=== PATIENT | female | born 1985 | race Caucasian/White ===

== ENCOUNTER 2020-02-29 16:09 | Emergency (ER) | payer BC, SELFPAY ==
[2020-02-29 17:11] VITALS: BP 128/82; PULSE 80; RESP 19; TEMP 36.8; O2SAT 99; BMI 38.4
--- NOTE | 2020-02-29 17:13 | HMH.EDUTC ---
[facility] [place] Disposition Clinical Impression: UTI (urinary tract infection) Qualifiers: Urinary tract infection type: site unspecified Hematuria presence: without hematuria Qualified Code(s): N39.0 - Urinary tract infection, site not specified Disposition: Home, Self-Care Condition on Discharge: Good Instructions: DI for Urinary Tract Infection (UTI), Nitrofurantoin, Phenazopyridine Additional Instructions: *Increase fluids. Water not Soda or Tea *Start antibiotic immediately and be sure to take as ordered for the FULL length of time although you should start to see improvement over the next 48 hours *Pyridium as needed Remember this medication will turn your urine [facility]. This is normal but it will stain what ever it gets on *You should not use Pyridium for more than 48 hours. If so , follow up with your primary physician to review urine culture and ensure that antibiotic is adequate for infection *Be SURE to follow up anytime for new or worsening symptoms with your family doctor. AND in 48 hours for urine culture results with your family doctor, if you do not have a doctor then you may call back to the [facility] for urine culture results and further treatment. We do recommend that you choose and establish care with a Primary Care Physician. AND follow up with them in 10-14 days to repeat UA to ensure infection is resolved and blood no longer present *Be sure to let your PCP know that we sent urine cultures from the [facility] so they can follow up to ensure that you area the on the correct antibiotic Call your doctor office and make appointment for 48 hours (2 days from today) to follow up and get the results of your urine culture and further treatment Return if needed Follow up as recommended and especially for your Urine Culture results Prescriptions: Nitrofurantoin Monohyd/M-Cryst [Macrobid 100 mg Capsule] 100 mg PO BID 10 Days #20 cap Transmission Status: Pending to [id number] Phenazopyridine HCl [Pyridium 200mg Tablet] 200 pow PO TID #6 tab Transmission Status: Pending to [facility] Referrals: PCP,No [Primary Care Provider] - As needed Time of Disposition: 17:19 Medical Decision Making - Jose R Inquiry Pt receiving controlled substance: No Jose R was queried for this patient: No Vital Signs: 02/29/20 17:11 Temperature 98.3 F Temperature Source Oral Pulse Rate [Left] 80 Respiratory Rate 19 Blood Pressure [Right Arm] 128/82 Blood Pressure Mean [Right Arm] 97 Blood Pressure Source [Right Arm] Automatic Cuff Blood Pressure Position [Right Arm] Sitting 02 Sat by Pulse Oximetry 99 Oxygen Delivery Method Room Air - Lab Data Lab results reviewed: Yes: I reviewed the patient's lab results. Orders (Tests/Meds): ORDERS Category Date Time Status Urine Culture Stat Micro 02/29/20 17:01 Ordered [facility] [place] HPI - General Stated complaint: [place] UTI Time Seen by Provider: 02/29/20 17:13 Mode of Arrival: Ambulatory Source of Information: Patient Limitations: No Limitations Description of Symptoms (Recalled from Triage Doc. by RN): Possible UTI HEENT Symptoms (Recalled from RN notes): No Resp Symptoms (Recalled from RN notes): No Skin Symptoms (Recalled from RN notes): No MS Symptoms (Recalled from RN notes): No Functional Status (Recalled from RN notes): wnl - History of Present Illness Provider Complaint: Patient state that she feels like she has a UTI State that she has been having the feeling of urgency and frequency and burining with urination States that she has not had any fever, chills, body aches or pain in her abdomen - Related Data Home Medications Medication Instructions Recorded Confirmed Magnesium Oxide [Magnesium] 250 mg PO DAILY 02/17/18 02/17/18 Previous Rx's Medication Instructions Recorded Nitrofurantoin Monohyd/M-Cryst 100 mg PO BID 10 Days #20 cap 02/29/20 [Macrobid 100 mg Capsule] Phenazopyridine HCl [Pyridium 200 pow PO TID #6 tab 02/29/20 200mg Tablet
[2020-02-29 17:39] VITALS: BP 128/82; PULSE 80; RESP 19; TEMP 36.8; O2SAT 99
[2020-02-29 19:26] LABS: Apearance,Urine Clear (Clear); Color,Urine Yellow (Yellow)
[2020-02-29 19:27] LABS: Bilirubin,Urine Negative (Negative); Blood, Urine Negative (Negative); Glucose,Urine (UA) Negative (Negative); Ketones,Urine Negative (Negative); PH,Urine 5.5 (5.0-8.5); Protein,Urine Negative (Negative); UTC Leukocyte Esterase,Urine 1+ (Negative); UTC Nitrate,Urine Negative (Negative); Urobilinogen,Urine 0.2 EU/dl (0.2)
== END 2020-02-29 17:40 | disposition home or self-care (01) ==
PROVIDERS: Emergency Provider Nurse Practitioner
DX: N39.0 Urinary tract infection, site not specified (principal); Z88.5 Allergy status to narcotic agent; Z87.891 Personal history of nicotine dependence
CPT/HCPCS: 81003; 87086; 87088; 87186; 99201

== ENCOUNTER 2020-06-22 19:34 | Emergency (ER) | payer BC, OTHER, SELFPAY ==
--- NOTE | 2020-06-22 19:32 | ECG_ITS ---
APPROVED REPORT Exam: Resting ECG HR:78 bpm ECG Measurements Heart Rate 78 AXES IA 158 P 53 QRSd 78 QRS 67 QT 386 T 52 QTc 440 Conclusion Normal sinus rhythm Normal ECG Electronically signed by : Wilfred Robledo, 06/23/2020 14:57:19
[2020-06-22 19:36] VITALS: BP 135/86; PULSE 84; RESP 14; TEMP 36.7; O2SAT 99; BMI 38.4
--- NOTE | 2020-06-22 19:49 | XR_ITS ---
PROCEDURE: XR CHEST 2V CLINICAL HISTORY: Chest Pain COMPARISON: CR CXR CHEST(2 VIEWS-NOT PORTABLE) from 02/01/2016 CR CXR CHEST(2 VIEWS-NOT PORTABLE) from 07/13/2016 CR CXR1VP XR chest portable from 02/17/[address] ANGIO CHEST from 06/22/2020 FINDINGS: The heart size is normal. Central pulmonary vasculature is within normal limits. There is an apparent ill-defined density noted in the right lower zone, demonstrates no corresponding focal lesions on the CT scan of the thorax performed on the same date, likely artifactual. The lungs are clear without infiltrates, suspicious nodules, or pleural effusions. No acute bony abnormalities. IMPRESSION: No focal consolidation or pleural effusions. Dictated by: Katerine Coley 06/23/2020 09:32 Katerine Coley in [place] 06/23/2020 09:32
--- NOTE | 2020-06-22 19:52 | CT_ITS ---
PROCEDURE: CT ANGIO CHEST CLINCIAL INDICATION: chest pain with HX PE COMPARISON: No exams were available for comparison TECHNIQUE: IV Contrast: 70ML Isovue 370 Axial images obtained with sagittal and coronal reformats. All CT scans at the facility use one or more dose reduction, viz: automated exposure control, ma/kV adjustment per patient size (including targeted exams where dose is matched to indication, i.e. head), or iterative reconstruction technique. FINDINGS: HEART AND MEDIASTINAL STRUCTURES: There is minor focal filling defects in the left main pulmonary artery extending into the segmental branches, predominantly adherent to the dietz, likely sequela of prior versus chronic pulmonary embolism. No evidence of occlusive filling defects noted. The heart size is normal. No pericardial effusions. LUNGS AND PLEURAL SPACES: No focal consolidation, pleural effusions or pneumothorax. Subpleural nodule noted in the right middle lobe measuring 3 millimeters. Minor bilateral lower lobe atelectasis. The central tracheobronchial tree is patent. No other suspicious lung nodules. BONY STRUCTURES: Minor degenerative changes of the visualized thoracic spine. UPPER ABDOMEN: Focal hypodense lesion is noted in the right lobe of the liver with peripheral vascularity. Cholecystectomy is noted. Rest of the visualized upper abdominal solid organs are unremarkable within the limitations of phase of IV contrast. ADDITIONAL FINDINGS: The visualized thyroid gland is unremarkable. IMPRESSION: Minor focal filling defects, predominantly adherent to the wall in the left main pulmonary artery extending into segmental branches, likely sequela of prior versus chronic pulmonary embolism. No evidence of occlusive pulmonary embolism is noted. Focal hypodense lesion in the right lobe of the liver with peripheral enhancement, incompletely evaluated on the current study. Nonemergent ultrasound of the liver is recommended for further evaluation. Dictated by: Katerine Coley 06/23/2020 09:16 Katerine Coley in [place] 06/23/2020 09:16
[2020-06-22 20:01] VITALS: BP 122/83; PULSE 62; RESP 17; O2SAT 97
[2020-06-22 20:05] LABS: Basophils # 0.1 K/mm3 (0-0.2); Basophils % 1.3 % (0.1-2.0); Eosinophils # 0.1 K/mm3 (0.0-0.4); Eosinophils % 1.3 % (0.1-12.0); Hemoglobin 15.2 g/dL (12.2-16.2); Lymphocytes # 3.5 K/mm3 (0.7-4.5); Lymphocytes % 34.7 % (10-50); Mean Corpuscular HGB Conc 32.9 g/dL (31.8-35.4); Mean Corpuscular Hemoglobin 29.7 pg (27.0-31.2); Mean Platelet Volume 7.7 fl (7.4-10.4); Monocytes # 0.4 K/mm3 (0.1-1.0); Monocytes % 4.1 % (1.7-9.3); Neutrophils # 5.8 K/mm3 (1.8-7.8); Neutrophils % 58.5 % (37.0-80.0); Platelet Count 310 K/mm3 (142-424); Red Blood Count 5.12 M/mm3 (4.20-5.40); Red Cell Distribution Width 13.2 % (11.5-17.5); White Blood Count 9.9 K/mm3 (4.8-10.8)
[2020-06-22 20:06] LABS: Alanine Aminotransferase 14 U/L (12-78); Albumin Level 4.5 g/dl (3.5-5.0); Alkaline Phosphatase 87 U/L (38-126); Amylase 61 U/L (30-110); Anion Gap 10.9 mEq/L (5-15); Aspartate Amino Transferase 20 U/L (14-36); Bilirubin,Indirect 0.4 mg/dL (0.0-0.9); Bilirubin,Total 0.4 mg/dl (0.2-1.3); Bilirubin,Unconjugated 0.4 mg/dL (0.0-1.1); Blood Urea Nitrogen 10 mg/dl (7-17); Calcium 9.5 mg/dl (8.4-10.2); Carbon Dioxide 22 mmol/L (22.0-30.0); Chloride 108 mmol/L (98-107); Creatinine Clearance Estimated 195 mL/min (50-200); Estimated Glomerular Filt Rate 113 ml/min (>60); GFR (African American) 137 ML/MIN (>60); Glucose 91 mg/dl (74-100); Lipase 230 U/L (23-300); Potassium 3.9 mmoL/L (3.5-5.1); Sodium 137 mmol/L (136-145)
[2020-06-22 20:12] LABS: C-Reactive Protein 2.7 mg/L (0-4)
[2020-06-22 20:23] LABS: Troponin I < 0.01 ng/ml (0.00-0.034)
[2020-06-22 20:26] LABS: Procalcitonin 0.041 ng/mL (0.0-2.0)
--- NOTE | 2020-06-22 20:35 | HMH.EDCP ---
ED Disposition Clinical Impression: Chest pain Qualifiers: Chest pain type: precordial pain Qualified Code(s): R07.2 - Precordial pain Disposition: Left Against Medical Advice Condition on Discharge: Good Instructions: DI for Chest Pain Additional Instructions: see pcp or card in am and return if sx restart Referrals: PCP,No [Non-Staff] - - Critical Care Critical Care Time: No Attestation: On 06/22/20, the high probability of a clinically significant, sudden or life threatening deterioration of the following system(s) required my full and direct attention, intervention and personal management. The time I documented below is in addition to time spent performing reported procedures but includes the following listed in this critical care notation. Medical Decision Making - Medical Records Medical records reviewed: Yes: I reviewed the patient's medical records. - Jose R Inquiry Pt receiving controlled substance: No Vital Signs: 06/22/20 19:36 06/22/20 20:01 06/22/20 21:00 Temperature 98.1 F Temperature Source Oral Pulse Rate 62 64 Pulse Rate [Right] 84 Respiratory Rate 14 17 13 Blood Pressure 122/83 125/80 Blood Pressure [Right Arm] 135/86 Blood Pressure Mean 96 Blood Pressure Mean [Right Arm] 102 Blood Pressure Source [Right Arm] Automatic Cuff Blood Pressure Position [Right Arm] Supine 02 Sat by Pulse Oximetry 99 97 96 Oxygen Delivery Method Room Air Room Air - Lab Data Lab results reviewed: Yes: I reviewed the patient's lab results. Lab Results 06/22/20 19:35: WBC 9.9, RBC 5.12, Hgb 15.2, Hct 46.0, MCV 90.0, MCH 29.7, MCHC 32.9, RDW 13.2, Plt Count 310, MPV 7.7, Neut % (Auto) 58.5, Lymph % (Auto) 34.7, Josephine % (Auto) 4.1, Eos % (Auto) 1.3, Baso % (Auto) 1.3, Neut # (Auto) 5.8, Lymph # (Auto) 3.5, Josephine # (Auto) 0.4, Eos # (Auto) 0.1, Baso # (Auto) 0.1, ESR 7 06/22/20 19:35: Sodium 137, Potassium 3.9, Chloride 108 H, Carbon Dioxide 22, Anion Gap 10.9, BUN 10, Creatinine 0.60, Estimated Creat Clear 195, Estimated GFR 113, Est GFR ( Amer) 137, Glucose 91, Calcium 9.5, Total Bilirubin 0.4, Direct Bilirubin 0.0, Conjugated Bilirubin 0.0, Indirect Bilirubin 0.4, Unconjugated Bilirubin 0.4, AST 20, ALT 14, Alkaline Phosphatase 87, Troponin I < 0.01, C-Reactive Protein 2.7, Total Protein 7.0, Albumin 4.5, Amylase 61, Lipase 230, Procalcitonin 0.041 Result diagrams: 06/22/20 19:35 06/22/20 19:35 Orders (Tests/Meds): ED MEDICATIONS Generic Name Dose Route Start Last Admin Trade Name Freq PRN Reason Stop Dose Admin Sodium Chloride 1,000 mls @ 999 mls/hr 06/22/20 20:00 06/22/20 20:05 Sod Chlor 0.9% 1000ml Bag IV 06/22/20 21:00 999 mls/hr .Q1H1M INDIRA Administration Sodium Chloride 8 ml 06/22/20 19:48 Sodium Chloride 0.9% 10ml Vial IV 07/22/20 19:47 NEEDED PRN dilute pepcid Discontinued Medications Generic Name Dose Route Start Last Admin Trade Name Freq PRN Reason Stop Dose Admin Famotidine 20 mg 06/22/20 19:48 06/22/20 20:04 Famotidine 20mg/2ml Vial IV 06/22/20 19:49 20 mg ONCE ONE Administration Iopamidol 70 ml 06/22/20 20:38 06/22/20 20:39 Iopamidol-370 (76%);100ml Bottle IV 06/22/20 20:39 70 ml ONCE ONE Administration Ketorolac Tromethamine 30 mg 06/22/20 19:48 06/22/20 20:04 Ketorolac 30mg/Ml Vial IV 06/22/20 19:49 30 mg ONCE ONE Administration Metoclopramide HCl 10 mg 06/22/20 19:48 06/22/20 20:04 Metoclopramide Hcl 10mg/2ml Vial IVP 06/22/20 19:49 10 mg ONCE ONE Administration Nitroglycerin 0.4 mg 06/22/20 19:48 06/22/20 20:04 Nitroglycerin 0.4mg Sl Tablet SL 06/22/20 19:49 0.4 mg ONCE ONE Administration Nitroglycerin 1 gm 06/22/20 21:00 06/22/20 21:01 Nitroglycerin 1 Gm Ointment TD 06/22/20 21:01 1 gm ONCE ONE Administration Ondansetron HCl 4 mg 06/22/20 19:48 06/22/20 20:04 Ondansetron 4mg/2ml Vial IV 06/22/20 19:49 4 mg ONCE ONE Administration S
[2020-06-22 20:46] LABS: Erythrocyte Sedimentation Rate 7 mm/hr (0-20)
[2020-06-22 21:00] VITALS: BP 125/80; PULSE 64; RESP 13; O2SAT 96
--- NOTE | 2020-06-22 21:37 | PC.NURSE ---
Pt wants to sign out AMA states she does not want to stay, the dangers of leaving have been explained by Dr Nelson and the nursing staff. Pt still wants to sign out AMA. Paper signed and IV removed, pt ambulated out.
[2020-06-22 21:42] VITALS: BP 111/76; PULSE 64; RESP 16; TEMP 36.7; O2SAT 99
== END 2020-06-22 21:48 | disposition left against medical advice (07) ==
PROVIDERS: Emergency Provider Emergency Medicine; PCP Nurse Practitioner Family
DX: R07.2 Precordial pain (principal); F41.9 Anxiety disorder, unspecified; I48.91 Unspecified atrial fibrillation; J44.9 Chronic obstructive pulmonary disease, unspecified; I10 Essential (primary) hypertension; I25.2 Old myocardial infarction; Z95.0 Presence of cardiac pacemaker; Z79.899 Other long term (current) drug therapy; F17.210 Nicotine dependence, cigarettes, uncomplicated
CPT/HCPCS: 71046; 71275; 80048; 80076; 82150; 83690; 84145; 84484; 85025; 85651; 86140; 93005; 96365; 96375; 99282; J2405; Q9967

== ENCOUNTER → 2020-07-01 14:14 | Outpatient (CLI) | payer BC, OTHER, SELFPAY | PROVIDERS: PCP Nurse Practitioner Family; Visit Provider Internal Medicine Cardiovascular Disease | DX: R07.9 Chest pain, unspecified (principal) | CPT/HCPCS: 93306 ==

== ENCOUNTER → 2020-07-07 09:46 | Outpatient (CLI) | payer BC, OTHER, SELFPAY ==
--- NOTE | 2020-07-07 09:48 | MM_ITS ---
PROCEDURE: MM DIG SCREENING MAMM BI W/CAD Digital Breast Tomosynthesis Included CLINICAL INDICATION: SCREENING No personal or family history of breast cancer. COMPARISON: This is a baseline exam, patient feels a thickness upper central portion right breast TECHNIQUE: Standard CC and MLO images and 3D Tomosynthesis was obtained. R2 CAD reviewed. FINDINGS: Moderate diffuse fibroglandular densities are seen in both breast primarily upper outer quadrants. Findings are fairly symmetrical bilaterally. There are no CAD markings. A skin marker was placed upper central portion right breast in a see no underlying abnormality. There are normal appearing glandular elements at this site similar to the comparable area left breast. There is no suspicious lesion in either breast and no suspicious microcalcifications. There are couple of benign-appearing calcifications in each breast. IMPRESSION: Mild to moderate breast density with no suspicious lesions seen BI-RAD Category: 2 Benign Finding(s) FOLLOW-UP: 1YR 1 Year Follow-up (A letter has been sent to the patient regarding results of the study.) Dictated by: Dr. Ibrahima Araiza MD 07/08/2020 13:10 Dr. Ibrahima Araiza MD in [place] 07/08/2020 13:10
== END ==
PROVIDERS: PCP Nurse Practitioner Family; Visit Provider Nurse Practitioner Family
DX: Z12.31 Encounter for screening mammogram for malignant neoplasm of breast (principal)
CPT/HCPCS: 77063; 77067

== ENCOUNTER → 2020-07-29 10:40 | Outpatient (CLI) | payer BC, OTHER, SELFPAY ==
[2020-07-29 11:30] LABS: INR 0.85 (0.9-1.1); Prothrombin Time 10.2 seconds (10.1-12.5)
[2020-07-29 11:34] LABS: D-Dimer 0.57 ug/mL (0.0-0.5)
[2020-07-29 12:04] LABS: Free T4 (Free Thyroxine) 1.08 ng/dl (0.78-2.19)
[2020-07-29 12:19] LABS: Thyroid Stimulating Hormone 1.01 uIU/mL (0.465-4.68)
[2020-07-30 11:34] LABS: Triiodothyronine (T3) Free 2.9 pg/mL (2.0-4.4)
[2020-07-31 15:42] LABS: Protein S, Free 56 % (57-157)
[2020-08-03 10:34] LABS: Protein C Antigen 128 % (60-150)
[2020-08-09 20:55] LABS: APTT 25.8 sec (.); Anti-Cardiolipin Antibody IgG <10 GPL (.); Anti-Cardiolipin Antibody IgM 11 MPL (.); Beta-2 Glycoprotein I Ab, IgA <10 SAU (.); Beta-2 Glycoprotein I Ab, IgG <10 SGU (.); Beta-2 Glycoprotein I Ab, IgM <10 SMU (.); Hexagonal Phase Phospholipid 2 sec (.); INR 0.9 ratio (.); Prothrombin Time 9.9 sec (.); Thrombin Time 19.1 sec (.)
== END ==
PROVIDERS: Internal Medicine Cardiovascular Disease; Visit Provider Internal Medicine Pulmonary Disease
DX: R06.00 Dyspnea, unspecified (principal); R07.9 Chest pain, unspecified; R42 Dizziness and giddiness; E05.90 Thyrotoxicosis, unspecified without thyrotoxic crisis or storm; F17.200 Nicotine dependence, unspecified, uncomplicated; Z86.711 Personal history of pulmonary embolism
CPT/HCPCS: 36415; 81241; 84439; 84443; 84481; 85302; 85306; 85378; 85597; 85598; 85610; 85613; 85670; 85730; 86146; 86147

== ENCOUNTER → 2020-08-15 13:34 | Outpatient (CLI) | payer BC, OTHER, SELFPAY ==
[2020-08-15 13:54] LABS: Basophils # 0.2 K/mm3 (0-0.2); Basophils % 1.2 % (0.1-2.0); Eosinophils # 0.2 K/mm3 (0.0-0.4); Eosinophils % 1.8 % (0.1-12.0); Hemoglobin 15.9 g/dL (12.2-16.2); Lymphocytes # 2.8 K/mm3 (0.7-4.5); Lymphocytes % 21.5 % (10-50); Mean Corpuscular HGB Conc 33.8 g/dL (31.8-35.4); Mean Corpuscular Hemoglobin 29.9 pg (27.0-31.2); Mean Corpuscular Volume 88.4 fl (81-99); Mean Platelet Volume 7.7 fl (7.4-10.4); Monocytes # 0.4 K/mm3 (0.1-1.0); Monocytes % 3.2 % (1.7-9.3); Neutrophils # 9.3 K/mm3 (1.8-7.8); Neutrophils % 72.2 % (37.0-80.0); Platelet Count 376 K/mm3 (142-424); Red Blood Count 5.31 M/mm3 (4.20-5.40); Red Cell Distribution Width 13.2 % (11.5-17.5); White Blood Count 12.9 K/mm3 (4.8-10.8)
[2020-08-15 15:24] LABS: Anion Gap 12.7 mEq/L (5-15); Blood Urea Nitrogen 13 mg/dl (7-17); Calcium 9.6 mg/dl (8.4-10.2); Carbon Dioxide 22 mmol/L (22.0-30.0); Chloride 107 mmol/L (98-107); Estimated Glomerular Filt Rate 95 ml/min (>60); GFR (African American) 115 ML/MIN (>60); Glucose 135 mg/dl (74-100); Potassium 4.7 mmoL/L (3.5-5.1); Sodium 137 mmol/L (136-145)
[2020-08-16 09:00] LABS: HCG Qualitative, Serum Negative (Negative)
== END ==
PROVIDERS: Visit Provider Internal Medicine Cardiovascular Disease
DX: R06.00 Dyspnea, unspecified (principal); Z01.812 Encounter for preprocedural laboratory examination; Z11.52 Encounter for screening for COVID-19; R42 Dizziness and giddiness; I27.20 Pulmonary hypertension, unspecified; R94.30 Abnormal result of cardiovascular function study, unspecified; F17.200 Nicotine dependence, unspecified, uncomplicated; Z86.711 Personal history of pulmonary embolism
CPT/HCPCS: 36415; 80048; 84703; 85025; U0003

== ENCOUNTER 2020-08-17 07:51 | Day surgery (SDC) | payer BC, OTHER, SELFPAY ==
[2020-08-17] VITALS (7 sets, daily range): BP systolic 106–128; BP diastolic 70–87; PULSE 68–90; RESP 18–20; O2SAT 90–96; BMI 40.2
--- NOTE | 2020-08-17 07:09 | IR_ITS ---
APPROVED REPORT Patient Location: Outpatient PROCEDURES Right internal jugular vein access Right heart catheterization INDICATION Pulmonary hypertension Informed consent was obtained prior to the procedure. COMPLICATIONS None Estimated Blood Loss: Less than 10 mls TECHNIQUE One percent lidocaine was used to anesthetize the right anterior aspect of the neck. A emergency communications dispatcher needle was used to identify the right internal jugular vein. Following this a larger cannulation needle was used to cannulate the right internal jugular vein and a wire was passed into the vein. Prior to the 7 [place] sheath being inserted the wire was confirmed under fluoroscopic guidance to be in the inferior vena cava. A 7 [place] sheath was introduced and a [place]-Bev catheter was floated using hemodynamic waveforms in the pulmonary artery, right ventricle , and right atrium. Saturations were obtained in the pulmonary artery and the right atrium. At the end of the procedure the patient was transferred to the postop holding area in stable condition for sheath removal. ANGIOGRAPHIC RESULTS Right atrial pressure 5 mmHg Right ventricular pressure 32/5 mmHg Pulmonary artery pressure 30/10 mmHg Pulmonary artery occlusion pressure 8 mmHg Right atrial saturation 78% Pulmonary artery saturation 80% IMPRESSION Normal to borderline mild pulmonary hypertension PLAN 1. Per primary cardiology team Electronically signed by : Rony Clinton, 08/17/2020 09:01:18
[2020-08-17 09:55] LABS: CATHL Arterial O2 SAT 80 % (90-100); CATHL Venous O2 SAT 78 % (75-80)
== END 2020-08-17 09:56 | disposition home or self-care (01) ==
LOC: CATHLAB 07:54
PROVIDERS: PCP Nurse Practitioner Family; Visit Provider Internal Medicine
DX: I27.20 Pulmonary hypertension, unspecified (principal); F17.210 Nicotine dependence, cigarettes, uncomplicated; R06.00 Dyspnea, unspecified; R42 Dizziness and giddiness; R94.30 Abnormal result of cardiovascular function study, unspecified; Z86.711 Personal history of pulmonary embolism
CPT/HCPCS: 82810; 93451; 99152; C1894; J1644

== ENCOUNTER 2020-09-20 19:05 | Emergency (ER) | payer OTHER, SELFPAY ==
[2020-09-20 19:25] VITALS: BP 161/87; PULSE 79; RESP 16; TEMP 37.1; O2SAT 97; BMI 36.6
--- NOTE | 2020-09-20 19:47 | CT_ITS ---
PROCEDURE INFORMATION: Exam: CT Head Without Contrast Exam date and time: 09/20/2020 7:47 PM Age: 35 years old Clinical indication: Injury or trauma; Work related; Blunt trauma (contusions or hematomas); Without loss of consciousness; Injury date: 09/20/2020; Injury details: Case of prabhakar fell off shelf and hit her in RT forehead neck pain and headache; Additional info: Head injury TECHNIQUE: Imaging protocol: Computed tomography of the head without contrast. Radiation optimization: All CT scans at this facility use at least one of these dose optimization techniques: automated exposure control; mA and/or kV adjustment per patient size (includes targeted exams where dose is matched to clinical indication); or iterative reconstruction. COMPARISON: No relevant prior studies available. FINDINGS: Brain: Normal. No hemorrhage. Unremarkable white matter. No mass effect. Cerebral ventricles: No ventriculomegaly. Paranasal sinuses: Visualized sinuses are unremarkable. No fluid levels. Mastoid air cells: Visualized mastoid air cells are well aerated. Bones/joints: Mild edema overlying the right frontal bone. Soft tissues: Unremarkable. IMPRESSION: 1. No acute intracranial findings. 2. Mild edema overlying the right frontal bone.
--- NOTE | 2020-09-20 19:47 | CT_ITS ---
PROCEDURE INFORMATION: Exam: CT Cervical Spine Without Contrast Exam date and time: 09/20/2020 7:47 PM Age: 35 years old Clinical indication: Injury or trauma; Other: Cashuber fell and hit her in RT forehead; Work related; Blunt trauma; Injury date: 09/20/2020; Patient HX: Case of janette woody fell off shelf and hit her in RT forehead. Neck pain and headache; Additional info: Head injury TECHNIQUE: Imaging protocol: Computed tomography images of the cervical spine without contrast. Radiation optimization: All CT scans at this facility use at least one of these dose optimization techniques: automated exposure control; mA and/or kV adjustment per patient size (includes targeted exams where dose is matched to clinical indication); or iterative reconstruction. COMPARISON: CR CS5 CERVICAL SPINE 4 OR 5 VIEWS 07/13/2016 6:22 PM FINDINGS: Bones/joints: Straightening of the curvature of the cervical spine is likely positional. Discs/Spinal canal/Neural foramina: No significant disc protrusion. No severe spinal canal stenosis. No significant neural foraminal narrowing. Lungs: Lung apices are normal. Soft tissues: Unremarkable. IMPRESSION: No acute fracture or malalignment of the cervical spine.
--- NOTE | 2020-09-20 20:07 | PC.NURSE ---
patient to CT
[2020-09-20 20:15] VITALS: BP 133/80; PULSE 70; RESP 15; O2SAT 100
[2020-09-20 20:33] LABS: Basophils # 0.1 K/mm3 (0-0.2); Basophils % 1.3 % (0.1-2.0); Eosinophils # 0.2 K/mm3 (0.0-0.4); Eosinophils % 2.4 % (0.1-12.0); Hematocrit 41.3 % (37.0-47.0); Lymphocytes # 3.3 K/mm3 (0.7-4.5); Mean Corpuscular HGB Conc 33.8 g/dL (31.8-35.4); Mean Corpuscular Hemoglobin 29.3 pg (27.0-31.2); Mean Corpuscular Volume 86.7 fl (81-99); Mean Platelet Volume 7.6 fl (7.4-10.4); Monocytes # 0.4 K/mm3 (0.1-1.0); Monocytes % 4.7 % (1.7-9.3); Neutrophils # 4.3 K/mm3 (1.8-7.8); Neutrophils % 51.6 % (37.0-80.0); Platelet Count 278 K/mm3 (142-424); Red Blood Count 4.77 M/mm3 (4.20-5.40); Red Cell Distribution Width 13.3 % (11.5-17.5); White Blood Count 8.3 K/mm3 (4.8-10.8)
[2020-09-20 20:44] LABS: Alanine Aminotransferase 13 U/L (12-78); Albumin Level 4.2 g/dl (3.5-5.0); Albumin/Globulin Ratio 1.4 (1.1-1.8); Alkaline Phosphatase 88 U/L (38-126); Anion Gap 13.9 mEq/L (5-15); Aspartate Amino Transferase 22 U/L (14-36); Bilirubin,Total 0.5 mg/dl (0.2-1.3); Blood Urea Nitrogen 9 mg/dl (7-17); Calcium 8.9 mg/dl (8.4-10.2); Carbon Dioxide 24 mmol/L (22.0-30.0); Chloride 106 mmol/L (98-107); Creatinine Clearance Estimated 159 mL/min (50-200); Estimated Glomerular Filt Rate 95 ml/min (>60); GFR (African American) 115 ML/MIN (>60); Globulin 2.9 g/dL (1.3-3.2); Glucose 91 mg/dl (74-100); Potassium 3.9 mmoL/L (3.5-5.1); Sodium 140 mmol/L (136-145); Total Protein,Serum 7.1 g/dl (6.3-8.2)
[2020-09-20 20:50] LABS: C-Reactive Protein 2.1 mg/L (0-4)
--- NOTE | 2020-09-20 20:53 | HMH.EDHA ---
ED Disposition Clinical Impression: Concussion without loss of consciousness Qualifiers: Encounter type: initial encounter Qualified Code(s): S06.0X0A - Concussion without loss of consciousness, initial encounter Blunt head trauma Qualifiers: Encounter type: initial encounter Qualified Code(s): S09.8XXA - Other specified injuries of head, initial encounter Cervical strain, acute Qualifiers: Encounter type: initial encounter Qualified Code(s): S16.1XXA - Strain of muscle, fascia and tendon at neck level, initial encounter Disposition: Home, Self-Care Condition on Discharge: Good Instructions: DI for Concussion Additional Instructions: advil/tyenol and see pcp for follow up - workman comp form completed Referrals: Yasmin Guthrie [Primary Care Provider] - - Critical Care Critical Care Time: No Attestation: On 09/20/20, the high probability of a clinically significant, sudden or life threatening deterioration of the following system(s) required my full and direct attention, intervention and personal management. The time I documented below is in addition to time spent performing reported procedures but includes the following listed in this critical care notation. Medical Decision Making - Medical Records Medical records reviewed: Yes: I reviewed the patient's medical records. - Jose R Inquiry Pt receiving controlled substance: No Vital Signs: 09/20/20 19:25 Temperature 98.7 F Temperature Source Oral Pulse Rate [Right] 79 Respiratory Rate 16 Blood Pressure [Right Arm] 161/87 H Blood Pressure Mean [Right Arm] 111 Blood Pressure Source [Right Arm] Automatic Cuff Blood Pressure Position [Right Arm] Supine 02 Sat by Pulse Oximetry 97 Oxygen Delivery Method Room Air - Lab Data Lab results reviewed: Yes: I reviewed the patient's lab results. Lab Results 09/20/20 20:30: WBC 8.3, RBC 4.77, Hgb 14.0, Hct 41.3, MCV 86.7, MCH 29.3, MCHC 33.8, RDW 13.3, Plt Count 278, MPV 7.6, Neut % (Auto) 51.6, Lymph % (Auto) 40.0, Levy % (Auto) 4.7, Eos % (Auto) 2.4, Baso % (Auto) 1.3, Neut # (Auto) 4.3, Lymph # (Auto) 3.3, Levy # (Auto) 0.4, Eos # (Auto) 0.2, Baso # (Auto) 0.1 09/20/20 20:30: Sodium 140, Potassium 3.9, Chloride 106, Carbon Dioxide 24, Anion Gap 13.9, BUN 9, Creatinine 0.70, Estimated Creat Clear 159, Estimated GFR 95, Est GFR ( Amer) 115, Glucose 91, Calcium 8.9, Total Bilirubin 0.5, AST 22, ALT 13, Alkaline Phosphatase 88, C-Reactive Protein 2.1, Total Protein 7.1, Albumin 4.2, Globulin 2.9, Albumin/Globulin Ratio 1.4 Result diagrams: 09/20/20 20:30 09/20/20 20:30 Orders (Tests/Meds): ED MEDICATIONS Generic Name Dose Route Start Last Admin Trade Name Freq PRN Reason Stop Dose Admin Sodium Chloride 1,000 mls @ 999 mls/hr 09/20/20 20:30 09/20/20 20:44 Sod Chlor 0.9% 1000ml Bag IV 09/20/20 21:30 999 mls/hr .Q1H1M INDIRA Administration Discontinued Medications Generic Name Dose Route Start Last Admin Trade Name Freq PRN Reason Stop Dose Admin Ketorolac Tromethamine 30 mg 09/20/20 20:19 09/20/20 20:44 Ketorolac 30mg/Ml Vial IV 09/20/20 20:20 30 mg ONCE ONE Administration Methylprednisolone Sodium Succinate 125 mg 09/20/20 20:19 09/20/20 20:44 Methylprednisolone Sod Succ 125mg Vial IV 09/20/20 20:20 125 mg ONCE ONE Administration ORDERS Category Date Time Status C-Reactive Protein Stat Lab 09/20/20 20:30 Results Complete Blood Count Auto Diff Stat Lab 09/20/20 20:30 Results Comprehensive Metabolic Panel Stat Lab 09/20/20 20:30 Results Erythrocyte Sedimentation Rate Stat Lab 09/20/20 20:30 Results Procalcitonin Stat Lab 09/20/20 20:30 Results - CT Data CT Scan: Head, C-Spine Time Received: 20:[address] Reviewed: Yes: I have viewed the radiologist's interpretation Preliminary Findings: No Fracture Seen Medical Decision Narrative: workman comp with acute head and neck injury with concussion syndrome Headache HPI - General
[2020-09-20 20:57] LABS: Erythrocyte Sedimentation Rate 13 mm/hr (0-20)
[2020-09-20 21:40] VITALS: BP 129/73; PULSE 70; RESP 16; TEMP 37.1
== END 2020-09-20 21:41 | disposition home or self-care (01) ==
PROVIDERS: Emergency Provider Emergency Medicine; PCP Nurse Practitioner Family
DX: S06.0X0A Concussion without loss of consciousness, initial encounter (principal); S09.8XXA Other specified injuries of head, initial encounter; S16.1XXA Strain of muscle, fascia and tendon at neck level, initial encounter; W20.8XXA Other cause of strike by thrown, projected or falling object, initial encounter; Y92.69 Other specified industrial and construction area as the place of occurrence of the external cause; Y99.0 Civilian activity done for income or pay
CPT/HCPCS: 70450; 72125; 80053; 84145; 85025; 85651; 86140; 96365; 96375; 99282

== ENCOUNTER 2020-10-27 12:07 | Emergency (ER) | payer BC, OTHER, SELFPAY ==
[2020-10-27 12:10] VITALS: BP 117/88; PULSE 91; RESP 20; TEMP 36.7; O2SAT 97; BMI 36.6
--- NOTE | 2020-10-27 12:28 | HMH.EDUTC ---
[facility] [place] Disposition Clinical Impression: Strep throat Disposition: Home, Self-Care Condition on Discharge: Good Instructions: Strep Throat, DI for Strep Throat Additional Instructions: Drink plenty of fluids. Take tylenol or ibuprofen for pain or fever. Take the medications as directed. Follow up with your regular doctor. GO TO THE ER FOR ANY WORSENING SYMPTOMS Throw your tooth brush away and get a new one. Prescriptions: Brompheniramine/Pseudoephed/Dm [Bromfed Dm Cough Syrup] 5 ml PO Q6HP PRN #240 syrup PRN Reason: Cough [facility]: [facility] predniSONE [Deltasone 10mg tablet] 10 mg PO BID 3 Days #6 tab Transmission Status: Received by [facility] Azithromycin [Z-Darius 250mg Tab*] 250 mg PO UD DOSE PK #6 tab Transmission [facility] Referrals: Yasmin Guthrie [Primary Care Provider] - Time of Disposition: 12:48 Medical Decision Making - Medical Records Medical records reviewed: No: I reviewed the patient's medical records. - Jose R Inquiry Pt receiving controlled substance: No Vital Signs: 10/27/20 12:10 10/27/20 12:33 Temperature 98.1 F 98.1 F Temperature Source Temporal Artery Scan Pulse Rate 91 H Pulse Rate [Left Brachial] 91 H Respiratory Rate 20 20 Blood Pressure 117/88 Blood Pressure [Left Arm] 117/88 Blood Pressure Mean [Left Arm] 97 Blood Pressure Source [Left Arm] Automatic Cuff Blood Pressure Position [Left Arm] Sitting 02 Sat by Pulse Oximetry 97 Oxygen Delivery Method Room Air - Lab Data Lab results reviewed: Yes: I reviewed the patient's lab results. Lab Results 10/27/20 12:24: Strep Scn Rapid [facility] Positive A Orders (Tests/Meds): ED MEDICATIONS Discontinued Medications Generic Name Dose Route Start Last Admin Trade Name Freq PRN Reason Stop Dose Admin Methylprednisolone Sodium Succinate 125 mg 10/27/20 12:36 10/27/20 12:43 Methylprednisolone Sod Succ 125mg Vial IM 10/27/20 12:37 125 mg ONCE ONE Administration Penicillin G Benzathine 1,200,000 unit 10/27/20 12:36 10/27/20 12:43 Penicillin G Benzathine 1,200,000 Units/2ml Syringe IM 10/27/20 12:37 1,200,000 unit ONCE ONE Administration Protocol [facility] [place] HPI - General Stated complaint: Covid test/symptoms Time Seen by Provider: 10/27/20 12:29 Mode of Arrival: Ambulatory Source of Information: Patient Limitations: No Limitations Description of Symptoms (Recalled from Triage Doc. by RN): PATIENT C/O HEADACHE, RUNNY NOSE, SORE THROAT, COUGH, BODY ACHES, AND NAUSEA SINCE SATURDAY. RECENTLY EXPOSED TO COVID HEENT Symptoms (Recalled from RN notes): Yes Resp Symptoms (Recalled from RN notes): Yes Skin Symptoms (Recalled from RN notes): No MS Symptoms (Recalled from RN notes): No Functional Status (Recalled from RN notes): WNL - History of Present Illness Provider Complaint: She c/o sore throat, chilling, fever and a dry cough for the past 3 days. She did have a covid exposure last week at her work so she has been off on quarentine. - Related Data Home Medications Medication Instructions Recorded Confirmed escitalopram oxalate 10 mg tablet 10 mg PO DAILY tab 07/21/20 10/27/20 hydroxyzine HCl 25 mg tablet 25 mg PO HS tab 07/21/20 08/17/20 Aspirin [Low Dose Aspirin EC] 81 mg PO DAILY 08/17/20 08/17/20 Omeprazole 40 mg PO DAILY 08/17/20 08/17/20 Propranolol HCl [Inderal 20mg 20 mg PO BID 08/17/20 10/27/20 tablet] Previous Rx's Medication Instructions Recorded Azithromycin [Z-Darius 250mg Tab*] 250 mg PO UD DOSE PK #6 tab 10/27/20 Brompheniramine/Pseudoephed/Dm 5 ml PO Q6HP PRN #240 syrup 10/27/20 [Bromfed Dm Cough Syrup] predniSONE [Deltasone 10mg tablet] 10 mg PO BID 3 Days #6 tab 10/27/20 Allergies Allergy/AdvReac Type Severity Reaction Status Date / Time aspirin [ASPIRIN] Allergy Mild NA-NAUSEA Verified 08/17/20 08:55 codeine [CODEINE] Allergy Mild NA-NAUSEA Verified 07/24
[2020-10-27 12:33] VITALS: BP 117/88; PULSE 91; RESP 20; TEMP 36.7; O2SAT 97
[2020-10-27 12:33] LABS: UTC Strep Screen (Rapid) Positive (Negative)
== END 2020-10-27 12:57 | disposition home or self-care (01) ==
PROVIDERS: Emergency Provider Nurse Practitioner Family; PCP Nurse Practitioner Family
DX: J02.0 Streptococcal pharyngitis (principal); Z20.822 Contact with and (suspected) exposure to COVID-19; F41.9 Anxiety disorder, unspecified; Z79.899 Other long term (current) drug therapy; F17.210 Nicotine dependence, cigarettes, uncomplicated
CPT/HCPCS: 87880; 96372; 99202; G0463; J0561; U0003